=== PATIENT | male | born 1960 | race Caucasian/White ===

== ENCOUNTER → 2017-01-05 | Outpatient (CLI) | payer MEDICAID ==
[2017-01-05 10:27] LABS: Basophils % (A) 1 %; CH 33.1; CHCM 34.6; Eosinophils # (A) 0.2 k/uL (0-0.7); Eosinophils % (A) 5 %; HCT 42.6 % (39.0-53.0); HDW 2.77; HGB 14.8 gm/dL (13.0-17.5); Luc # (Auto) 0.15; Luc % (Auto) 3; Lymphocytes # (A) 2.2 k/uL (1.0-4.8); Lymphocytes % (A) 44 %; MCH 33.5 pg (25.0-35.0); MCHC 34.7 g/dL (31.0-37.0); MCV 96.3 fL (80.0-100.0); Mean Platelet Volume 6.6; Monocytes # (A) 0.2 k/uL (0-1.0); Monocytes % (A) 4 %; Neutrophils # (A) 2.1 k/uL (1.3-7.7); Neutrophils % (A) 43 %; RBC 4.42 m/uL (4.30-5.90); WBC 4.9 k/uL (3.8-10.6); WBC (Perox) 5.02
[2017-01-05 12:29] LABS: Hemoglobin A1C 5.3 % (4.2-6.1)
[2017-01-05 14:54] LABS: ALT 38 U/L (21-72); AST 25 U/L (17-59); Alkaline Phosphatase 38 U/L (38-126); Anion Gap 9 mmol/L; Blood Urea Nitrogen 16 mg/dL (9-20); Calcium 9.5 mg/dL (8.4-10.2); Carbon Dioxide 27 mmol/L (22-30); Chloride 104 mmol/L (98-107); Cholesterol 213 mg/dL (<200); Glucose 102 mg/dL (74-99); HDL Cholesterol 61 mg/dL (40-60); Non-African American GFR(MDRD) >60 (>60 ml/min/1.73 sqM); Potassium 4.5 mmol/L (3.5-5.1); Sodium 140 mmol/L (137-145); Total Protein 6.9 g/dL (6.3-8.2); Triglycerides 97 mg/dL (<150)
== END ==
LOC: LABWHC1 09:25
PROVIDERS: ATTEND Internal Medicine Geriatric Medicine
DX: F41.1 Generalized anxiety disorder (principal); E78.00 Pure hypercholesterolemia, unspecified; E29.1 Testicular hypofunction
CPT/HCPCS: 36415; 80053; 80061; 83036; 84403; 84439; 84443; 85025

== ENCOUNTER 2018-01-04 20:10 | Emergency (ER) | payer BC, MEDICAID ==
[2018-01-04 20:27] VITALS: RESP 20; TEMP 96.8
[2018-01-04] MEDS ORDERED: DIPH,PERTUS(ACELL)TETVAC-LF 0.5 ML VIAL IM ONE (20:38)
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
[2018-01-04] MEDS ORDERED: ONDANSETRON 4 MG/2 ML VIAL IVP STA (20:56)
[2018-01-04] MEDS ORDERED: SODIUM CHLORIDE 0.9% 1,000 ML IV STA (20:56)
[2018-01-04] MEDS ORDERED: MECLIZINE 12.5 MG TAB PO STA (20:58)
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
[2018-01-04] MEDS ORDERED: TOPICAL SKIN ADHESIVE 1 EACH AMP TOPICAL ONE (21:30)
[2018-01-04 21:55] VITALS: BP 130/68; PULSE 70
[2018-01-04] MEDS ORDERED: DIAZEPAM 5 MG TAB PO STA (21:56)
== END 2018-01-04 22:09 | disposition home or self-care (01) ==
LOC: EC 20:10
DX: S06.0X9A Concussion with loss of consciousness of unspecified duration, initial encounter (principal); S01.81XA Laceration without foreign body of other part of head, initial encounter; F32.9 Major depressive disorder, single episode, unspecified; F41.0 Panic disorder [episodic paroxysmal anxiety]; Z23 Encounter for immunization; Z79.899 Other long term (current) drug therapy; Y04.0XXA Assault by unarmed brawl or fight, initial encounter
CPT/HCPCS: 72125; 70450; 90715; 99284; 12011; 96374; 96361; 90471; J2405

== ENCOUNTER 2022-08-14 16:23 | Emergency (ER) | payer OTHER ==
[2022-08-14 18:15] VITALS: TEMP 98.2
[2022-08-14] MEDS ORDERED: HYDROmorphone 1 MG/ML 1 ML SYRINGE IM STA (18:26)
--- NOTE | 2022-08-14 18:52 | XR ---
EXAMINATION TYPE: XR foot complete RT DATE OF EXAM: 08/14/2022 CLINICAL HISTORY: Injury with pain TECHNIQUE: Frontal, lateral, and oblique images of the right foot are obtained. COMPARISON: None FINDINGS: There is no acute fracture/dislocation evident in the right foot. The joint spaces in the right foot appear within normal limits. The overlying soft tissue appears unremarkable. IMPRESSION: There is no acute fracture or dislocation in the right foot.
--- NOTE | 2022-08-14 19:42 | ED ---
Lower Extremity Injury HPI - General Chief Complaint: Extremity Injury, Lower Stated Complaint: [facility] - R. Foot Injury Time Seen by Provider: 08/14/22 18:18 Source: patient Mode of arrival: ambulatory - History of Present Illness Initial Comments: Patient is a 61-year-old male presenting with chief complaint of foot pain. Patient states that he dropped a heavy piece of metal onto the right foot today at 1300. Patient states immediately following the incident the pain was not so bad, however as he is done walking on the foot today the pain is been increasing. Patient admits to pain with weightbearing. No numbness or tingling. He admits to some swelling and tenderness to the dorsal portion of the foot. No weakness or loss of range of motion. No pain traveling up the l eg. No discoloration. - Related Data Home Medications Medication Instructions Recorded Confirmed Citalopram Hydrobromide [CeleXA] 40 mg PO DAILY 01/04/18 01/04/18 DULoxetine HCL [Cymbalta] 30 mg PO DAILY 01/04/18 01/04/18 clonazePAM [KlonoPIN] 1 mg PO HS 01/04/18 01/04/18 Previous Rx's Medication Instructions Recorded Meclizine [Antivert] 25 mg PO DAILY 10 Days tab 01/04/18 Ondansetron Odt [Zofran ODT] 4 mg PO Q8HR PRN #20 tab 01/04/18 Allergies Allergy/AdvReac Type Severity Reaction Status Date / Time No Known Allergies Allergy Unverified 08/14/22 18:15 Review of Systems ROS Statement: Those systems with pertinent positive or pertinent negative responses have been documented in the HPI. ROS Other: All systems not noted in ROS Statement are negative. Past Medical History Past Medical History: No Reported History, Hyperlipidemia History of Any Multi-Drug Resistant Organisms: None Reported Additional Past Surgical History / Comment(s): hand surgery Past Psychological History: Depression, Panic Disorder Smoking Status: Never smoker Past Alcohol Use History: None Reported Past Drug Use History: None Reported General Exam Limitations: no limitations General appearance: alert, in no apparent distress Head exam: Present: atraumatic, normocephalic, normal inspection Eye exam: Present: normal appearance Neck exam: Present: normal inspection Right Foot/Toe exam: Present: full ROM, tenderness, swelling. Absent: ecchymosis, deformity Neurovascular tendon exam: Present: no vascular compromise. Absent: motor deficit, sensory deficit Neurological exam: Present: alert, oriented X3, CN II-XII intact Psychiatric exam: Present: normal affect, normal mood Skin exam: Present: warm, dry, intact, normal color. Absent: rash Course Vital Signs 08/14/22 08/14/22 18:11 20:17 Temperature 98.2 F Pulse Rate 77 76 Respiratory 18 13 Rate Blood Pressure 129/89 140/70 O2 Sat by Pulse 97 95 Oximetry Medical Decision Making - Medical Decision Making Patient is a 61-year-old male presenting with chief complaint of right foot pain . Patient dropped a piece of metal on the foot at work. He admits to pain with weightbearing and some tenderness and swelling to the dorsal portion. On physical examination there is some tenderness to palpation and swelling noted, he is neurovascularly intact. X-ray shows no acute fracture or dislocation. Patient is educated on these findings. He is provided with postop shoe and crutches. Educated on supportive treatment with rest, ice, compression, and elevation.Follow-up with PCP. Report back to ER with any new or worsening symptoms. Discussed return parameters and answered all questions. Patient conveyed verbal understanding and agreed to the plan. I discussed this case in detail with my attending Dr. Nassar Disposition Clinical Impression: Foot sprain Disposition: HOME SELF-CARE Condition: Good Instructions (If sedation given, give patient instructions): Foot Sprain (ED) Additional Instructions: Follow up with PCP. Report back to ER with any new or worsening symptoms. Take Motrin and Tylenol as needed for pain control. Rest, ice, compress, elevate the foot as needed. Utilize postop shoe and crutches as needed. Is patient prescribed a controlled substance at d/c from ED?: No Referrals: Pantera Lindo MD [Primary Care Provider] - 1-2 days Time of Disposition: 19:41
[2022-08-14 20:19] VITALS: BP 140/70; PULSE 76; RESP 13
== END 2022-08-14 20:21 | disposition home or self-care (01) ==
LOC: EC 16:23
DX: S93.601A Unspecified sprain of right foot, initial encounter (principal); F32.A Depression, unspecified; Z79.899 Other long term (current) drug therapy; W20.8XXA Other cause of strike by thrown, projected or falling object, initial encounter
CPT/HCPCS: 73630; 99283; 96372; J1170

== ENCOUNTER → 2024-06-08 | Outpatient (CLI) | payer BC, MEDICARE ==
--- NOTE | 2024-06-08 15:03 | XR ---
EXAMINATION TYPE: XR chest 2V DATE OF EXAM: 06/08/2024 COMPARISON: None HISTORY: 63-year-old male J18.9 PNEUMONIA, UNSPECIFIED ORGANISM TECHNIQUE: Frontal and lateral views FINDINGS: The cardiomediastinal silhouette, aorta, and pulmonary vasculature are within normal limits mild hype rinflation. Patchy opacity at the lateral left lower lung. No other consolidation or pleural effusion . IMPRESSION: 1. Possible underlying COPD. Clinically correlate. 2. Patchy infiltrate/pneumonia at the periphery of the left lower lung.
== END | disposition home or self-care (01) ==
LOC: RADXRMAIN 11:24
PROVIDERS: ATTEND Internal Medicine Geriatric Medicine
DX: J18.1 Lobar pneumonia, unspecified organism (principal)
CPT/HCPCS: 71046